=== PATIENT | male | born 1965 | race Caucasian/White ===

== ENCOUNTER 2024-07-27 14:03 | Outpatient (REF) | payer BC, SELFPAY ==
[2024-07-27 15:28] LABS: Abs Immature Grans 0.04 10^3/uL (0.0-0.06); Absolute Basophil Count 0.04 10^3/uL (0.0-0.2); Absolute Eosinophil Count 0.29 10^3/uL (0.0-0.7); Absolute Lymphocyte Count 1.14 10^3/uL (1.2-3.4); Absolute Monocyte Count 0.71 10^3/uL (0.1-0.8); Absolute Neutrophil Count 3.69 10^3/uL (1.2-6.7); Basophils % 0.7 %; Eosinophils % 4.9 %; HCT 45.3 % (40.0-50.0); HGB 15.6 g/dL (13.5-17.5); Immature Grans % 0.7 %; Lymphocytes % 19.3 %; MCH 31.2 pg (27.0-33.0); MCHC 34.4 % (32.0-36.0); MCV 91 fL (80-95); MPV 10.2 fL (8.0-11.0); Neutrophils % 62.4 %; Platelet Count 215 10^3/uL (130-400); RDW 12.3 % (11.8-14.1); RDW-SD 40.5 fL; WBC 5.91 10^3/uL (4.4-10.8)
[2024-07-27 15:36] LABS: INR 0.9 (0.9-1.1); Prothrombin Time 9.4 sec (9.1-11.1)
[2024-07-27 16:13] LABS: ALT 171 U/L (16-63); AST 165 U/L (15-37); Albumin 4.5 g/dL (3.4-5.0); Alkaline Phosphatase 80 U/L (46-116); Anion Gap 9.9 mmol/L (3-11); BUN 10 mg/dL (7-18); Bilirubin, Total 0.55 mg/dL (0.2-1.0); CO2 25.1 mmol/L (21.0-32.0); Calcium 9.8 mg/dL (8.5-10.1); Calculated LDL 179 mg/dL (<100); Chloride 100 mmol/L (98-107); Cholesterol 268 mg/dL (<200); Glucose 99 mg/dL (74-106); HDL Cholesterol 69 mg/dL (40-60); Potassium 4.2 mmol/L (3.5-5.1); Sodium 135 mmol/L (136-145); Total Protein 8.5 g/dL (6.4-8.2); Triglyceride 103 mg/dL (<150)
[2024-07-27 22:39] LABS: PSA, Screening 0.3 ng/mL (<=3.5)
== END 2024-07-27 14:04 | disposition home or self-care (01) ==
LOC: NCHCN 14:03
PROVIDERS: PCP Family Medicine; Visit Provider Family Medicine
DX: Z13.6 Encounter for screening for cardiovascular disorders (principal); Z12.5 Encounter for screening for malignant neoplasm of prostate; I10 Essential (primary) hypertension; Z72.89 Other problems related to lifestyle
CPT/HCPCS: 80053; 80061; 84153; 86704; 86709; 86803; 87340; 85025; 85610

== ENCOUNTER 2024-09-28 13:05 | Outpatient (REF) | payer BC, SELFPAY ==
[2024-09-28 15:42] LABS: ALT 87 U/L (16-63); AST 66 U/L (15-37); Albumin 4.3 g/dL (3.4-5.0); Alkaline Phosphatase 69 U/L (46-116); Anion Gap 12.7 mmol/L (3-11); BUN 12 mg/dL (7-18); Bilirubin, Total 0.5 mg/dL (0.2-1.0); CO2 25.3 mmol/L (21.0-32.0); CREATININE 0.9 mg/dL (0.70-1.30); Calcium 9.7 mg/dL (8.5-10.1); Chloride 104 mmol/L (98-107); Estimated GFR 98.38 (mL/min/1.73m2); Glucose 94 mg/dL (74-106); Potassium 4.7 mmol/L (3.5-5.1); Sodium 142 mmol/L (136-145)
== END 2024-09-28 13:06 | disposition home or self-care (01) ==
LOC: NCHCN 13:05
PROVIDERS: PCP Family Medicine; Visit Provider Family Medicine
DX: I10 Essential (primary) hypertension (principal)
CPT/HCPCS: 80053

== ENCOUNTER 2025-03-24 09:04 | Emergency (ER) | payer BC, SELFPAY ==
[2025-03-24 09:12] VITALS: BP 166/85; PULSE 89; RESP 20; TEMP 36.6; O2SAT 98
[2025-03-24] MEDS: Fluorescein STRIPS 100/BOX 1 MG (09:19)
[2025-03-24] MEDS: Balanced Salt Solution 15 ML BTL (09:19)
[2025-03-24] MEDS: Tetracaine 0.5% 4 ML BTL (09:19)
[2025-03-24] MEDS: Erythromycin Ophth Oint 3.5 GM TUBE OD (10:44)
--- NOTE | 2025-03-25 18:00 | W.ED.GENAD ---
Discharge Plan Disposition Patient Disposition: Home Discharge Details Clinical Impression: Acute chemical conjunctivitis Primary Care Provider: Brittnee Elkins V ED Provider: Chelsi Jean Home Meds and New Rx's Prescriptions: New erythromycin 5 mg/gram (0.5 %) ointment 0.5 inch ophthalmic (eye) TID Qty: 3.5 0RF Continued loratadine [Allergy Relief (loratadine)] 10 mg tablet 10 mg PO DAILY fluticasone propionate [Children's Flonase Allergy Rlf] 50 mcg/actuation spray,suspension 1 spray intranasal BID Rx Instructions: administer into each nostril triamcinolone acetonide 0.1 % cream 1 applic topical DAILY olmesartan 20 mg tablet 20 mg PO DAILY allopurinol 100 mg tablet 100 mg PO DAILY Discharge Instructions Additional Instructions: Use the erythromycin ointment 3 times daily half-inch strip to lower lid Wear sunglasses for the remainder of today Call the associate marketing manager tomorrow if you continue to have eye irritation to be seen let them know you are in the emergency department the day of her prior and have bleach in your eye that was irrigated Please return earlier should you have worsening complaints or should any new concerns arise Referrals: [facility] [Outside] - 1 day Brittnee Elkins MD [Primary Care Provider, Medicine] Discharge Data Discharge Date/Time-TO BE ENTERED AT DEPARTURE: 03/24/25 10:45 HPI General Date/Time Provider Initiated Documentation: 03/24/25 09:19. 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 He cleaned the countertops with bleach spray solution and then wiped his eyes he thinks he may have gotten some bleach in his eye. He tried to irrigate for 10 minutes but did not have success. He denies any history of corrective lens use. He denies any known foreign bodies. Related Data Home Medications ?Medication ?Instructions ?Recorded ?Confirmed allopurinol 100 mg tablet 100 mg PO DAILY 11/17/24 03/24/25 fluticasone propionate 50 1 spray intranasal BID 11/17/24 03/24/25 mcg/actuation nasal spray,suspension (Children's Flonase Allergy Relief) loratadine 10 mg tablet (Allergy 10 mg PO DAILY 11/17/24 03/24/25 Relief (loratadine)) olmesartan 20 mg tablet 20 mg PO DAILY 11/17/24 03/24/25 triamcinolone acetonide 0.1 % 1 applic topical DAILY 11/17/24 03/24/25 topical cream erythromycin 5 mg/gram (0.5 %) eye 0.5 inch ophthalmic (eye) TID #3.5 03/24/25 ointment grams Previous Rx's ?Medication ?Instructions ?Recorded erythromycin 5 mg/gram (0.5 %) eye 0.5 inch ophthalmic (eye) TID #3.5 03/24/25 ointment grams Allergies Allergy/AdvReac Type Severity Reaction Status Date / Time No Known Allergies Allergy Unverified 03/24/25 09:14 General Stated Complaint: EyeProblem LEONEL: 3 Exam Narrative Exam Narrative: Left eye with conjunctival injection pupil equal round reactive to light and accommodation no rashes or lesions around the eyes. They pH paper shows a pH of 8 in the affected eye. No fluorescein uptake appreciated extraocular muscles intact Course Vital Signs Vital signs: Vital Signs Temperature 36.6 C 03/24/25 09:12 Pulse 89 03/24/25 09:12 Respiratory Rate 20 03/24/25 09:12 Blood Pressure 166/85 H 03/24/25 09:12 Pulse Oximetry 98 03/24/25 09:12 Temperature 36.6 C 03/24/25 09:12 Temperature Source Tympanic 03/24/25 09:12 Pulse 89 03/24/25 09:12 Respiratory Rate 20 03/24/25 09:12 Blood Pressure 166/85 H 03/24/25 09:12 Blood Pressure Position Sitting 03/24/25 09:12 Pulse Oximetry 98 03/24/25 09:12 Oxygen Delivery Method Room Air 03/24/25 09:12 Oxygen Flow Rate 0 03/24/25 09:12 Pain Level 6 03/24/25 09:12 Medical Decision Making OD 20/70 OS 20/70 OU 20/70 Assessment and plan: 59-year-old male presenting with report of eye irritation from 7:30 in the morning. pH in the affected eye is 8. Will irrigate 1 L of LR. On reassessment patient feeling marked improvement in symptoms. I spoke with poison control and their recommendation was ophthalmology follow-up as needed and irrigation of eye. Patient is able to open his eye his visual acuity was reviewed. He is encouraged to follow-up with ophthalmology tomorrow. He was placed on the list for [place] referral. He was given erythromycin to place in the affected eye return precautions reviewed and patient expressed understanding [facility] All Active Problems (Updated 03/24/25 @ 10:35 by LATONYA Bell) Acute chemical conjunctivitis (Acute) Bilateral sensorineural hearing loss (Acute) Social History Smoking risk assessment performed?: No
== END 2025-03-24 10:45 | disposition home or self-care (01) ==
PROVIDERS: Emergency Provider Physician Assistant; PCP Family Medicine
DX: H10.212 Acute toxic conjunctivitis, left eye (principal); Z77.29 Contact with and (suspected) exposure to other hazardous substances; Y99.0 Civilian activity done for income or pay
CPT/HCPCS: 99283